=== PATIENT | female | born 1970 | race Two or more races ===

== ENCOUNTER → 2017-06-20 | Outpatient (CLI) | payer OTHER ==
--- NOTE | ~2017-06-20 | MY29 ---
[facility] A Service of [facility] RADIOLOGY TEXT RESULTS PATIENT: GABRIEL BUCHANAN LOCATION: [facility] : 68 UNIT #: [id number] AGE: [address]: Ravinder Solis MD SEX: F ORDER DR: [id number] [facility] [address] [facility] [place], [place] [address] [id number] O MR#: [id number] Acc #: [id number] NAME: GABRIEL BUCHANAN : 1970 SEX: F STUDY DATE/TIME: 06/20/2017 12:28 UNIT: [facility] ROOM: STUDY DESCRIPTION: [facility] SCREENING W/ CAD BILAT Attending Physician: Ravinder Solis M.D. Referring Physician: Ravinder Solis M.D. Ordering Physician: Ravinder Solis M.D. Primary Care Physician: Ravinder Solis M.D. MEDICAL IMAGING REPORT This report is preliminary unless electronic signature is present EXAM Digital screening mammogram with CAD. INDICATIONS Routine screening. Baseline study. PROCEDURE Bilateral CC and MLO views obtained on a digital mammography unit and FDA-approved CAD device was utilized. COMPARISON None. FINDINGS Scattered fibroglandular density. No dominant mass or suspicious calcification. IMPRESSION Negative screening mammogram screen for 1 year suggested. Patients over the age of 40 are entered into a reminder system with target due date for the next mammogram. A result letter will be sent to the patient. BIRADS: 1 Negative. Dictated by... Jonatan Keller M.D. THIS IS AN ELECTRONICALLY VERIFIED REPORT Jonatan Keller M.D. at 06/22/2017 12:12 PM EED/william [facility] A Service [facility] RADIOLOGY TEXT RESULTS PATIENT: GABRIEL BUCHANAN LOCATION: [facility] : 68 UNIT #: [id number] AGE: [address]: Ravinder Solis MD SEX: F ORDER DR: TD: 06/21/2017 07:03 JOB #: [id number] MEDICAL IMAGING REPORT Page 1 of 1 COPY
== END | disposition home or self-care (01) ==
LOC: CWCC 12:13
DX: Z12.31 Encounter for screening mammogram for malignant neoplasm of breast (principal)
CPT/HCPCS: G0202